=== PATIENT | female | born 1990 | race Caucasian/White ===

== ENCOUNTER 2016-04-19 17:52 | Emergency (ER) | payer OTHER ==
[2016-04-19] MEDS ORDERED: Rocephin 1000 MG INJ IM ONE (18:02)
[2016-04-19] MEDS ORDERED: XYLOCAINE 1% HCL 20 ML MDV ONE (18:07)
[2016-04-19] MEDS ORDERED: Rocephin 1000 MG INJ ONE (18:07)
--- NOTE | 2016-04-19 18:12 | ERPHSYRPT ---
- History of Present Illness Time Seen by Provider: 04/19/16 18:08 Historian: patient Exam Limitations: no limitations Patient Subjective Stated Complaint: abd pain for 1 week Triage Nursing Assessment: 18 weeks . abd pain for 1 week--worsening for past 2 days. nausea with no vomiting. back pain started today. states has had yellow clear discharge for 1 week. lt lower abd pain worse with with urination. abd soft. noraml bm this morning. skin warm. heart tones 140's Physician History: abd pain for 1 week 18 weeks . abd pain for 1 week--worsening for past 2 days. nausea with no vomiting. back pain started today. states has had yellow clear discharge for 1 week. lt lower abd pain worse with with urination. heart tones 140's Timing/Duration: week(s) (one week) Activities at Onset: none Quality: cramping Abdominal Pain Onset Location: suprapubic Pain Radiation: no radiation Severity of Pain-Max: mild Severity of Pain-Current: mild Modifying Factors: Improves With: nothing Associated Symptoms: back Allergies/Adverse Reactions: No Known Drug Allergies Allergy (Unverified 04/19/16 17:59) Home Medications: [id number]/FA/Omega3/Dha/Fish Oil [ Gummies] 1 each PO DAILY 04/19/16 [ History] Hx Tetanus, Diphtheria Vaccination/Date Given: Yes Hx Influenza Vaccination/Date Given: No Hx Pneumococcal Vaccination/Date Given: No Immunizations Up to Date: Yes - Review of Systems Constitutional: No Fever, No Chills Eyes: No Symptoms Ears, Nose, & Throat: No Symptoms Respiratory: No Cough, No Dyspnea Cardiac: No Chest Pain, No Edema, No Syncope Abdominal/Gastrointestinal: Abdominal Pain, No Nausea, No Vomiting, No Diarrhea Genitourinary Symptoms: Dysuria, Frequency Musculoskeletal: Back Pain, No Neck Pain Skin: No Rash Neurological: No Dizziness, No Focal Weakness, No Sensory Changes Psychological: No Symptoms Endocrine: No Symptoms All Other Systems: Reviewed and Negative - Past Medical History Pertinent Past Medical History: No Neurological History: No Pertinent History ENT History: No Pertinent History Cardiac History: No Pertinent History Respiratory History: No Pertinent History Endocrine Medical History: No Pertinent History Musculoskeletal History: No Pertinent History GI Medical History: No Pertinent History, Other History: No Pertinent History, Other Psycho-Social History: No Pertinent History Female Reproductive Disorders: No Pertinent History - Past Surgical History Past Surgical History: No - Social History Smoking Status: Never smoker Exposure to second hand smoke: Yes Drug Use: none Patient Lives Alone: No - Female History Hx Now: No Expected Date of Delivery: 09/21/16 - Nursing Vital Signs Nursing Vital Signs: Initial Vital Signs Temperature 98.7 F Temperature Source Oral Pulse Rate 88 Respiratory Rate 18 Blood Pressure [Right Arm] 144/81 Pain Intensity 8 - Physical Exam General Appearance: no apparent distress, alert Eye Exam: PERRL/EOMI, eyes nml inspection Ears, Nose, Throat Exam: normal ENT inspection, pharynx normal, moist mucous membranes Neck Exam: normal inspection, non-tender, supple, full range of motion Respiratory Exam: normal breath sounds, lungs clear, No respiratory distress Cardiovascular Exam: regular rate/rhythm, normal heart sounds Gastrointestinal/Abdomen Exam: soft (18-20 weeks abdomen), normal bowel sounds, other (positive heart sounds 140-150), No tenderness, No distention, No mass Back Exam: normal inspection, normal range of motion, No CVA tenderness, No vertebral tenderness Extremity Exam: normal inspection, normal range of motion, pelvis stable Neurologic Exam: alert, oriented x 3, cooperative, normal mood/affect, nml cerebellar function, sensation nml, No motor deficits Skin Exam: normal color, warm, dry Oxygen Delivery: Room Air - Course Nursing assessment & vital signs reviewed: Yes Ordered Tests: Active Orders 24 hr Category Date Time Status CBC W DIFF Stat Lab 04/19/16 18:11 Completed CMP Stat Lab 04/19/16 18:11 Received UA Stat Lab 04/19/16 18:11 Completed Medication Summary Discontinued Medications Generic Name Dose Route Start Last Admin Trade Name Giselle PRN Reason Stop Dose Admin Ceftriaxone Sodium 1,000 mg 04/19/16 18:02 04/19/16 18:08 Rocephin 1000 Mg Inj IM 04/19/16 18:03 1,000 mg STAT ONE Administration Ceftriaxone Sodium Confirm 04/19/16 18:07 Rocephin 1000 Mg Inj Administered 04/19/16 18:08 Dose 1,000 mg .ROUTE .STK-MED ONE Lidocaine HCl Confirm 04/19/16 18:07 Xylocaine 1% Hcl 20 Ml Mdv Administered 04/19/16 18:08 Dose 3 ml .ROUTE .STK-MED ONE Lab/Rad Data: Laboratory Result Diagrams 04/19/16 18:11 Laboratory Results 04/19/16 04/19/16 Range/Units 18:11 18:11 WBC 8.9 (4.0-10.5) K/mm3 RBC 4.15 (4.1-5.4) M/mm3 Hgb 13.0 (12.0-16.0) gm/dl Hct 36.7 (35-47) % MCV 88.4 (78-100) fl MCH 31.3 (26-32) pg MCHC 35.4 (32-36) g/dl RDW 13.6 (11.5-14.0) % Plt Count 256 (150-450) K/mm3 MPV 10.2 H (6-9.5) fl Gran % 70.3 H (36.0-66.0) % Lymphocytes % 17.8 L (24.0-44.0) % Monocytes % 9.2 (0.0-12.0) % Eosinophils % 2.5 (0.00-5.0) % Basophils % 0.2 (0.0-0.4) % Basophils # 0.02 (0-0.4) Ur Collection Type CLEAN CATCH Urine Color YELLOW (YELLOW) Urine Appearance SLIGHTLY CLOUDY (CLEAR) Urine pH 7.0 (5-6) Ur Specific [place] 1.020 (1.005-1.025) Urine Protein NEGATIVE (Negative) Urine Glucose (UA) NEGATIVE (NEGATIVE) mg/dL Urine Ketones NEGATIVE (NEGATIVE) Urine Nitrite NEGATIVE (NEGATIVE) Urine Bilirubin NEGATIVE (NEGATIVE) Urine Urobilinogen 4 (0-1) mg/dL Urine WBC (Auto) NEGATIVE (NEGATIVE) Urine RBC (Auto) NEGATIVE (0-5) Jamarcus/ul Specimen Received 04/19/16 1810 - Progress Progress: improved Counseled pt/family regarding: lab results, diagnosis, need for follow-up - Departure Time of Disposition: 18:29 Departure Disposition: Home Clinical Impression: Abdominal pain during in second trimester Condition: Stable Critical Care Time: No Referrals: ANTOINETTE BAUTISTA [Primary Care Provider] - Additional Instructions: ABDOMINAL PAIN 1. There are several different causes for abdominal pain, some of which may not be able to be identified on initial examination. 2. The important thing to remember is that bodily functions can change in a short period of time. If you notice any of the following symptoms, return to the emergency department or consult your doctor immediately: A. Worsening pain or no improvement in the next 12 hours. B. Increasing, severe abdominal pain C. Blood in stool, vaginal bleeding D. Black stools E. Persistent vomiting F. Fever or chills or other symptoms Prescriptions: Amoxicillin 500 mg PO TID #30 tablet
[2016-04-19 18:14] LABS: BASOPHIL % 0.2 % (0.0-0.4); Eosinophil % 2.5 % (0.00-5.0); Granulocytes % 70.3 % (36.0-66.0); Lymphocytes % 17.8 % (24.0-44.0); Mean Cell Volume 88.4 fl (78-100); Mean Corpuscular Hemoglobin 31.3 pg (26-32); Mean Platelet Volume 10.2 fl (6-9.5); Monocytes % 9.2 % (0.0-12.0); Platelet Count 256 K/mm3 (150-450); Red Blood Count 4.15 M/mm3 (4.1-5.4); Red Cell Distribution Width 13.6 % (11.5-14.0); White Blood Count 8.9 K/mm3 (4.0-10.5)
[2016-04-19 18:21] LABS: COMPLETE URINE MICROSCOPIC? NO; Collection Type CLEAN CATCH
[2016-04-19 18:32] LABS: ALBUMIN 3.1 g/dL (3.4-5.0); ALKALINE PHOSPHATASE 111 U/L (46-116); ANION GAP 14.9 MEQ/L (5-15); BLOOD UREA NITROGEN 7 mg/dL (9-20); CHLORIDE 104 mEq/L (98-107); Carbon Dioxide 23.1 mEq/L (21-32); Glucose 103 MG/DL (70-110); Potassium 3.5 mEq/L (3.5-5.1); SGOT/AST 50 U/L (15-37); SGPT/ALT 71 U/L (12-78); SODIUM 139 mEq/L (136-145); Total Protein 7.1 gm/dL (6.4-8.2)
[2016-04-19 18:46] VITALS: BP 129/70; PULSE 70; O2SAT 100
== END 2016-04-19 18:46 | disposition home or self-care (01) ==
LOC: ED 17:52
DX: O26.892 Other specified pregnancy related conditions, second trimester (principal); R10.9 Unspecified abdominal pain
CPT/HCPCS: 36415; 80053; 81002; 85025; 96372; 99283; 99284; J0696

== ENCOUNTER 2016-07-23 19:50 | Observation (INO) | payer MEDICAID ==
[2016-07-23 21:10] LABS: Collection Type CLEAN CATCH
[2016-07-23 21:11] LABS: Bacteria RARE /HPF (NEGATIVE); COMPLETE URINE MICROSCOPIC? YES; Epithelial Cells FEW /HPF (FEW)
[2016-07-23] MEDS ORDERED: Sodium Chloride 0.9% 1000 ML 1,000 ML IV STA (21:45)
[2016-07-23] MEDS ORDERED: Lactated Ringers 1,000 ML IV SCH (22:00)
[2016-07-24 00:32] LABS: CHLAMYDIA URINE NEGATIVE; GC URINE NEGATIVE
[2016-07-24 08:27] VITALS: BP 120/71; PULSE 93
== END 2016-07-24 08:15 | disposition home or self-care (01) ==
LOC: OB 19:50
PROVIDERS: ADMIT Family Medicine; ATTEND Family Medicine
DX: Z34.83 Encounter for supervision of other normal pregnancy, third trimester (principal)
CPT/HCPCS: 80307; 81000; 87491; 87591; G0378

== ENCOUNTER 2016-08-28 21:13 | Observation (INO) | payer MEDICAID ==
[2016-08-29 01:01] VITALS: BP 136/81; PULSE 95
== END 2016-08-29 02:15 | disposition home or self-care (01) ==
LOC: OB 21:13 → UNDOADMOB 21:13 → UNDODISOB 08-29 02:15
PROVIDERS: ADMIT Family Medicine; ATTEND Family Medicine
DX: Z34.83 Encounter for supervision of other normal pregnancy, third trimester (principal)
CPT/HCPCS: G0378

== ENCOUNTER 2016-09-07 20:05 | Observation (INO) | payer MEDICAID ==
[2016-09-07 20:27] VITALS: BP 138/85; PULSE 96
== END 2016-09-07 22:00 | disposition home or self-care (01) ==
LOC: OB 20:05 → UNDOADMOB 20:05 → UNDODISOB 22:00
PROVIDERS: ADMIT Family Medicine; ATTEND Family Medicine
DX: Z34.83 Encounter for supervision of other normal pregnancy, third trimester (principal)
CPT/HCPCS: 80307; G0378

== ENCOUNTER 2016-09-14 19:24 | Inpatient (IN) | payer MEDICAID ==
[2016-09-14] MEDS ORDERED: XYLOCAINE 1% HCL 20 ML MDV IJ PRN (21:16)
[2016-09-14] MEDS ORDERED: TYLENOL EXTRA STRENGTH 500 MG PO PRN (21:16)
[2016-09-14] MEDS ORDERED: BRETHINE 1 MG/ML SQ PRN (21:16)
[2016-09-14] MEDS ORDERED: OMNIPEN 2 GM / NACL 100ML 100 ML IV ONE (21:16)
[2016-09-14] MEDS ORDERED: Zofran 4 MG/2 ML VIAL IV PRN (21:16)
[2016-09-14] MEDS ORDERED: Lactated Ringers 1,000 ML IV SCH (21:30)
[2016-09-14] MEDS ORDERED: PITOCIN 30 UNITS/ LR 500 ML 500 ML IV SCH ×2 (21:30)
[2016-09-14 21:35] LABS: BASOPHIL % 0.2 % (0.0-0.4); Eosinophil % 0.5 % (0.00-5.0); Granulocytes % 77.5 % (36.0-66.0); Lymphocytes % 14.7 % (24.0-44.0); Mean Cell Volume 82.5 fl (78-100); Mean Platelet Volume 11.5 fl (6-9.5); Monocytes % 7.1 % (0.0-12.0); Platelet Count 292 K/mm3 (150-450); Red Blood Count 4.29 M/mm3 (4.1-5.4); Red Cell Distribution Width 14.8 % (11.5-14.0); White Blood Count 8.1 K/mm3 (4.0-10.5)
[2016-09-14 21:36] LABS: Mean Corpuscular Hemoglobin 26.5 pg (26-32)
[2016-09-14] MEDS ORDERED: Cervidil 10 MG VAG SCH (22:00)
[2016-09-15] MEDS ORDERED: OMNIPEN 1GM / NaCl 100ML 100 ML IV SCH ×2 (01:18→10:00)
[2016-09-15] MEDS ORDERED: Trandate 100 MG ONE (05:56)
[2016-09-15] MEDS ORDERED: Lactated Ringers 1,000 ML IV SCH (06:00)
[2016-09-15] MEDS ORDERED: PITOCIN 30 UNITS/ LR 500 ML 500 ML IV SCH ×2 (06:00)
[2016-09-15] MEDS: OMNIPEN 2 GM / NACL 100ML 100 ML IV ONE ×2 (06:01→06:02)
[2016-09-15] MEDS ORDERED: Trandate 100 MG PO ONE (06:03)
[2016-09-15 06:54] LABS: ALBUMIN 2.8 g/dL (3.4-5.0); ALKALINE PHOSPHATASE 175 U/L (46-116); ANION GAP 19.5 MEQ/L (5-15); BLOOD UREA NITROGEN 8 mg/dL (9-20); CHLORIDE 101 mEq/L (98-107); Carbon Dioxide 19.4 mEq/L (21-32); Glucose 99 MG/DL (70-110); Potassium 3.6 mEq/L (3.5-5.1); SGOT/AST 49 U/L (15-37); SGPT/ALT 54 U/L (12-78); SODIUM 136 mEq/L (136-145); Total Protein 7.3 gm/dL (6.4-8.2)
[2016-09-15 07:18] LABS: BASOPHIL % 0.2 % (0.0-0.4); Eosinophil % 0.4 % (0.00-5.0); Granulocytes % 76.5 % (36.0-66.0); Lymphocytes % 15.2 % (24.0-44.0); Mean Cell Volume 83.1 fl (78-100); Mean Platelet Volume 11.1 fl (6-9.5); Monocytes % 7.7 % (0.0-12.0); Platelet Count 310 K/mm3 (150-450); Red Blood Count 4.32 M/mm3 (4.1-5.4); Red Cell Distribution Width 14.9 % (11.5-14.0); White Blood Count 11.2 K/mm3 (4.0-10.5)
[2016-09-15 07:21] LABS: Mean Corpuscular Hemoglobin 26.1 pg (26-32)
[2016-09-15] MEDS ORDERED: MOTRIN 400 MG PO PRN (08:19)
[2016-09-15] MEDS ORDERED: Dermoplast Spray TP PRN (08:19)
[2016-09-15] MEDS ORDERED: CORTISONE 1% CREAM TP PRN (08:19)
[2016-09-15] MEDS ORDERED: Anucort-HC SUPPOSITORY PR PRN (08:19)
[2016-09-15] MEDS ORDERED: TYLENOL EXTRA STRENGTH 500 MG PO PRN (08:19)
[2016-09-15] MEDS ORDERED: Mylicon 80MG PO PRN (08:19)
[2016-09-15] MEDS ORDERED: Dulcolax 10 MG SUPP PR PRN (08:19)
[2016-09-15] MEDS ORDERED: NORCO 5/325 MG PO PRN (08:19)
[2016-09-15] MEDS ORDERED: Adacel Vial IM ONE (08:19)
[2016-09-15] MEDS ORDERED: LANSINOH 40 GM TOP PRN (08:19)
[2016-09-15 08:33] LABS: Bilirubin NEGATIVE (NEGATIVE); Blood 250 Ery/ul (0-5); COMPLETE URINE MICROSCOPIC? YES; Collection Type CATH; Glucose TRACE mg/dL (NEGATIVE); Leukocyte Esterase NEGATIVE (NEGATIVE)
[2016-09-15 08:34] LABS: Bacteria FEW /HPF (NEGATIVE); Epithelial Cells FEW /HPF (FEW); WBC 0-2 /HPF (0-5)
[2016-09-15] MEDS ORDERED: Trandate 100 MG PO SCH (10:00)
[2016-09-15] MEDS: FERREX 150 PO SCH (13:19)
[2016-09-15] MEDS: Colace 100 MG PO SCH ×2 (13:19→21:28)
[2016-09-16 08:07] LABS: BASOPHIL % 0.2 % (0.0-0.4); Eosinophil % 0.8 % (0.00-5.0); Lymphocytes % 13.7 % (24.0-44.0); Mean Cell Volume 84.1 fl (78-100); Mean Platelet Volume 11.5 fl (6-9.5); Monocytes % 7.3 % (0.0-12.0); Platelet Count 266 K/mm3 (150-450); Red Blood Count 3.77 M/mm3 (4.1-5.4); Red Cell Distribution Width 14.9 % (11.5-14.0); White Blood Count 11.1 K/mm3 (4.0-10.5)
[2016-09-16 08:08] LABS: ALBUMIN 2.4 g/dL (3.4-5.0); ALKALINE PHOSPHATASE 148 U/L (46-116); ANION GAP 13.9 MEQ/L (5-15); BLOOD UREA NITROGEN 7 mg/dL (9-20); CHLORIDE 105 mEq/L (98-107); Carbon Dioxide 22.9 mEq/L (21-32); Glucose 94 MG/DL (70-110); Potassium 4.2 mEq/L (3.5-5.1); SGOT/AST 42 U/L (15-37); SGPT/ALT 39 U/L (12-78); SODIUM 138 mEq/L (136-145); Total Protein 6.4 gm/dL (6.4-8.2)
[2016-09-16 09:01] LABS: Mean Corpuscular Hemoglobin 26.2 pg (26-32)
[2016-09-16] MEDS: FERREX 150 PO SCH (09:43)
[2016-09-16] MEDS: Colace 100 MG PO SCH ×2 (09:43→21:46)
[2016-09-17 08:26] VITALS: BP 141/97; PULSE 98
== END 2016-09-17 09:07 | disposition home or self-care (01) | DRG 775 ==
LOC: UNDOADMOB 20:19 → OB 20:19 → OBSVTOIN 09-15 05:05 → INTOOBSV 09-15 05:05 → UNDODISIN 09-17 09:07
PROVIDERS: ADMIT Family Medicine; ATTEND Family Medicine
PROC: 10E0XZZ Delivery of Products of Conception, External Approach (ICD-10-PCS; principal; 2016-09-15)
PROC: 0KQM0ZZ Repair Perineum Muscle, Open Approach (ICD-10-PCS; 2016-09-15)
DX: O70.1 Second degree perineal laceration during delivery (principal); Z37.0 Single live birth; Z3A.39 39 weeks gestation of pregnancy
CPT/HCPCS: 36415; 80053; 80307; 81000; 84550; 85025; 90715; 96372; G0378; J0290; J2405; J2590; A9270-GY

== ENCOUNTER 2020-09-01 18:49 | Emergency (ER) | payer OTHER ==
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
[2020-09-01 19:54] VITALS: BP 147/96; PULSE 80; O2SAT 100
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
== END 2020-09-01 19:54 | disposition home or self-care (01) ==
LOC: ED 18:49
DX: M25.511 Pain in right shoulder (principal); I10 Essential (primary) hypertension; M54.2 Cervicalgia
CPT/HCPCS: 72125; 73030; 99283

== ENCOUNTER 2020-12-04 13:51 | Day surgery (SDC) | payer OTHER ==
[2020-12-04] MEDS ORDERED: BUPIVACAINE 0.5% VIAL IJ ONE (13:52)
[2020-12-04] MEDS ORDERED: Depo-Medrol 40 MG/ML IM ONE (13:52)
[2020-12-04] MEDS ORDERED: DIPRIVAN 200 MG/20 ML IV ONE (15:37)
[2020-12-04] MEDS ORDERED: Lactated Ringers 1,000 ML IV ONE (17:29)
--- NOTE | 2020-12-04 18:26 | XRAY ---
Indication: Right shoulder injection. Intraoperative fluoroscopy provided for 13 seconds. Single digital spot image submitted for interpretation demonstrates needle tip projecting over the right glenohumeral joint superiorly. Small amount of contrast injected for needle tip placement. Correlate with intraoperative findings/report.
--- NOTE | 2020-12-04 19:01 | XRAY ---
13 seconds of fluoroscopy was used in surgery for a right shoulder intra-articular injection.
== END 2020-12-04 16:00 | disposition home or self-care (01) ==
LOC: SDC-PAIN 13:51
PROVIDERS: ATTEND Psychiatry & Neurology Pain Medicine
DX: M19.011 Primary osteoarthritis, right shoulder (principal); Z79.899 Other long term (current) drug therapy
CPT/HCPCS: 20610; 73030; 77002; 84703; J1030; J2704; Q9966

== ENCOUNTER 2021-07-02 11:31 | Day surgery (SDC) | payer OTHER ==
[2021-07-02] MEDS ORDERED: BUPIVACAINE 0.5% VIAL IJ ONE (11:32)
[2021-07-02] MEDS ORDERED: Depo-Medrol 40 MG/ML IM ONE (11:32)
[2021-07-02] MEDS ORDERED: Versed 2 MG/2 ML Injection ONE (12:38)
[2021-07-02] MEDS ORDERED: DIPRIVAN 200 MG/20 ML IV ONE (13:31)
[2021-07-02] MEDS ORDERED: Lactated Ringers 1,000 ML IV ONE (13:55)
--- NOTE | 2021-07-02 14:32 | XRAY ---
Indication: Right shoulder injection. Intraoperative fluoroscopy provided for 18 seconds. Single digital spot image submitted for interpretation demonstrates needle tip projecting over the right glenohumeral joint superiorly. Small amount of contrast injected for needle tip placement. Correlate with intraoperative findings/report.
--- NOTE | 2021-07-02 16:28 | XRAY ---
18 seconds fluoroscopy time in surgery for intra-articular injection of the right shoulder.
== END 2021-07-02 14:16 | disposition home or self-care (01) ==
LOC: SDC-PAIN 11:31
PROVIDERS: ATTEND Psychiatry & Neurology Pain Medicine
DX: M19.011 Primary osteoarthritis, right shoulder (principal); Z79.899 Other long term (current) drug therapy
CPT/HCPCS: 20610; 73030; 77002; 84703; J1030; J2250; J2704; Q9966

== ENCOUNTER 2021-07-15 12:48 | Emergency (ER) | payer OTHER ==
[2021-07-15] MEDS ORDERED: Sodium Chloride 0.9% 1000 ML 1,000 ML IV STA ×2 (13:03→14:39)
[2021-07-15] MEDS ORDERED: Compazine 10 MG/2 ML IV ONE (13:04)
[2021-07-15 13:05] VITALS: O2SAT 98
[2021-07-15] MEDS ORDERED: TORAdol 30 mg Injection IM ONE (13:05)
--- NOTE | 2021-07-15 13:06 | ERPHSYRPT ---
- History of Present Illness Time Seen by Provider: 07/15/21 12:58 Source: patient Exam Limitations: no limitations Patient Subjective Stated Complaint: headache and body aches and can't get warm Triage Nursing Assessment: Pt was brought to the ER by a relative, tachycardic, hypertensive, rates pain as 11/15, N&V, body aches, pulses normal, skin n/w/d, denies diarrhea, last intake this AM at 0830 Physician History: Patient is a 31-year-old female presents to emergency department for evaluation of headache and myalgias. Symptoms started yesterday. Patient arrived to our ED complaining of cold chills. Patient has had multiple bouts of nausea and vomiting prior to arrival. Patient arrived tachycardic. No chest pain or shortness of breath. Symptoms are mild to moderate in intensity. Patient took ibuprofen at 430 this morning which slightly helped. However patient symptoms continued. Patient patient is otherwise healthy. She voices no other complaints or concerns at this time. Timing/Duration: yesterday Severity: moderate Modifying Factors: Improves With: nothing Associated Symptoms: nausea, vomiting, chills, No shortness of breath, No fever, No syncope, No seizure Allergies/Adverse Reactions: No Known Drug Allergies Allergy (Verified 07/15/21 13:05) Hx Tetanus, Diphtheria Vaccination/Date Given: Yes Hx Influenza Vaccination/Date Given: No Hx Pneumococcal Vaccination/Date Given: No Travel Risk - International Travel Have you traveled outside of the country in past 3 weeks: No - Coronavirus Screening Are you exhibiting any of the following symptoms?: Yes Symptoms: Headaches/Body Aches/Fatigue Close contact with a COVID-19 positive Pt in past 14-21 Days: No - Vaccine Status Have you recieved a Covid-19 vaccination: No - Review of Systems Constitutional: No Symptoms, No Fever, No Chills Eyes: No Symptoms Ears, Nose, & Throat: No Symptoms Respiratory: No Symptoms, No Cough, No Dyspnea Cardiac: No Symptoms, No Chest Pain, No Edema, No Syncope Abdominal/Gastrointestinal: No Symptoms, No Abdominal Pain, No Nausea, No Vomiting, No Diarrhea Genitourinary Symptoms: No Symptoms, No Dysuria Musculoskeletal: No Symptoms, No Back Pain, No Neck Pain Skin: No Symptoms, No Rash Neurological: No Symptoms, No Dizziness, No Focal Weakness, No Sensory Changes Psychological: No Symptoms Endocrine: No Symptoms Hematologic/Lymphatic: No Symptoms Immunological/Allergic: No Symptoms All Other Systems: Reviewed and Negative - Past Medical History Pertinent Past Medical History: Yes Neurological History: No Pertinent History ENT History: No Pertinent History Cardiac History: Hypertension Respiratory History: No Pertinent History Endocrine Medical History: No Pertinent History Musculoskeletal History: No Pertinent History GI Medical History: No Pertinent History, Other History: No Pertinent History, Other Psycho-Social History: No Pertinent History Female Reproductive Disorders: No Pertinent History Other Medical History: Gastritis 2011, anemia - Past Surgical History Past Surgical History: No - Social History Smoking Status: Never smoker Exposure to second hand smoke: No Drug Use: none Patient Lives Alone: No - Female History Hx Last Menstrual Period: 07/07/2021 Hx Now: No - Nursing Vital Signs Nursing Vital Signs: Initial Vital Signs Temperature 97.3 F 07/15/21 12:53 Pulse Rate 131 H 07/15/21 12:53 Blood Pressure 138/101 07/15/21 12:53 O2 Sat by Pulse Oximetry 98 07/15/21 12:53 Pain Scale Pain Intensity 4 - Physical Exam General Appearance: no apparent distress, alert Eye Exam: PERRL/EOMI, eyes nml inspection Ears, Nose, Throat Exam: normal ENT inspection, TMs normal, pharynx normal, moist mucous membranes Neck Exam: normal inspection, non-tender, supple, full range of motion Respiratory Exam: normal breath sounds, lungs clear, airway intact, No respiratory distress Cardiovascular Exam: normal heart sounds, normal peripheral pulses, other (Sinus tachycardia) Gastrointestinal/Abdomen Exam: soft, normal bowel sounds, No tenderness, No mass Back Exam: normal inspection, normal range of motion, No CVA tenderness, No vertebral tenderness Extremity Exam: normal inspection, normal range of motion, pelvis stable Neurologic Exam: alert, oriented x 3, cooperative, normal mood/affect, nml cerebellar function, nml station & gait, sensation nml, No motor deficits Skin Exam: normal color, warm, dry, No rash Lymphatic Exam: No adenopathy SpO2 Interpretation: normal SpO2: 98 O2 Delivery: Room Air - Course Nursing assessment & vital signs reviewed: Yes EKG Interpreted by Me: RATE ([id number]), Sinus Tach, NORMAL AXIS, NORMAL INTERVALS Ordered Tests: Active Orders 24 hr Category Date Time Status Environmental Technology Professor STAT Care 07/15/21 13:04 Active EKG-ER Only STAT Care 07/15/21 13:03 Active IV Insertion STAT Care 07/15/21 13:03 Active CBC W DIFF Stat Lab 07/15/21 13:15 Completed CMP Stat Lab 07/15/21 13:15 Completed CULTURE,URINE Stat Lab 07/15/21 13:51 Received D-DIMER QUANTITATIVE Stat Lab 07/15/21 15:37 Completed HCG,QUALITATIVE URINE Stat Lab 07/15/21 13:51 Completed TROPONIN Q3H Lab 07/15/21 13:15 Completed TROPONIN Q3H Lab 07/15/21 16:15 Ordered TROPONIN Q3H Lab 07/15/21 19:15 Ordered TROPONIN Q3H Lab 07/15/21 22:15 Ordered TROPONIN Q3H Lab 07/16/21 01:15 Ordered TSH [TSH, 3RD Generation] Stat Lab 07/15/21 14:38 Completed UA W/RFX CULTURE Stat Lab 07/15/21 13:51 Completed Medication Summary Discontinued Medications Generic Name Dose Route Start Last Admin Trade Name Freq PRN Reason Stop Dose Admin Dexamethasone Sodium Phosphate 8 mg 07/15/21 14:03 07/15/21 14:24 Dexamethasone Sod Phosphate 10 Mg/Ml IV 07/15/21 14:04 8 mg STAT ONE Administration Dexamethasone Sodium Phosphate Confirm 07/15/21 14:24 Dexamethasone Sod Phosphate 10 Mg/Ml Administered 07/15/21 14:25 Dose 10 mg .ROUTE .STK-MED ONE Sodium Chloride 1,000 mls @ 999 mls/hr 07/15/21 13:03 07/15/21 14:24 Sodium Chloride 0.9% 1000 Ml IV 07/15/21 14:03 Infused .Q1H1M STA Infusion Sodium Chloride Confirm 07/15/21 13:17 Sodium Chloride 0.9% 1000 Ml Administered 07/15/21 13:18 Dose 1,000 mls @ ud .ROUTE .STK-MED ONE Sodium Chloride 1,000 mls @ 999 mls/hr 07/15/21 14:39 07/15/21 15:54 Sodium Chloride 0.9% 1000 Ml IV 07/15/21 15:39 Infused .Q1H1M STA Infusion Sodium Chloride Confirm 07/15/21 14:41 Sodium Chloride 0.9% 1000 Ml Administered 07/15/21 14:42 Dose 1,000 mls @ ud .ROUTE .STK-MED ONE Ketorolac Tromethamine 30 mg 07/15/21 13:05 07/15/21 13:31 Ketorolac Tromethamine 30 Mg/Ml Inj IM 07/15/21 13:06 Not Given STAT ONE Ketorolac Tromethamine 30 mg 07/15/21 13:30 07/15/21 13:36 Ketorolac Tromethamine 30 Mg/Ml Inj IV 07/15/21 13:31 30 mg STAT ONE Administration Ketorolac Tromethamine Confirm 07/15/21 13:36 Ketorolac Tromethamine 30 Mg/Ml Inj Administered 07/15/21 13:37 Dose 30 mg .ROUTE .STK-MED ONE Nitrofurantoin Macrocrystals 100 mg 07/15/21 14:35 07/15/21 14:37 Nitrofurantoin Macro 100 Mg Capsule PO 07/15/21 14:36 100 mg STAT ONE Administration Nitrofurantoin Macrocrystals Confirm 07/15/21 14:37 Nitrofurantoin Macro 100 Mg Capsule Administered 07/15/21 14:38 Dose 100 mg .ROUTE .STK-MED ONE Prochlorperazine Edisylate 10 mg 07/15/21 13:04 07/15/21 13:37 Prochlorperazine Edisylate 10 Mg/2 Ml Vial IV 07/15/21 13:05 10 mg STAT ONE Administration Prochlorperazine Edisylate Confirm 07/15/21 13:36 Prochlorperazine Edisylate 10 Mg/2 Ml Vial Administered 07/15/21 13:37 Dose 10 mg .ROUTE .STK-MED ONE Lab/Rad Data: Laboratory Result Diagrams 07/15/21 13:15 07/15/21 13:15 Laboratory Results 07/15/21 07/15/21 07/15/21 Range/Units 15:37 14:38 13:51 WBC (4.0-10.5) K/mm3 RBC (4.1-5.4) M/mm3 Hgb (12.0-16.0) gm/dl Hct (35-47) % MCV (78-100) fl MCH (26-32) pg MCHC (32-36) g/dl RDW (11.5-14.0) % Plt Count (150-450) K/mm3 MPV (7.5-11.0) fl Gran % (36.0-66.0) % Eos # (Auto) (0-0.5) Absolute Lymphs (auto) (1.0-4.6) Absolute Monos (auto) (0.0-1.3) Lymphocytes % (24.0-44.0) % Monocytes % (0.0-12.0) % Eosinophils % (0.00-5.0) % Basophils % (0.0-0.4) % Absolute Granulocytes (1.4-6.9) Basophils # (0-0.4) D-Dimer 473 (215-500) ng/mL Sodium (137-145) mmol/L Potassium (3.5-5.1) mmol/L Chloride (98-107) mmol/L Carbon Dioxide (22-30) mmol/L Anion Gap (5-15) MEQ/L BUN (7-17) mg/dL Creatinine (0.52-1.04) mg/dL Estimated GFR ML/MIN Glucose (74-106) mg/dL Calcium (8.4-10.2) mg/dL Total Bilirubin (0.2-1.3) mg/dL AST (14-36) U/L ALT (0-35) U/L Alkaline Phosphatase (38-126) U/L Troponin I (0.000-0.034) ng/mL Serum Total Protein (6.3-8.2) g/dL Albumin (3.5-5.0) g/dL TSH 3rd Generation 1.060 (0.47-4.68) mIU/L Urinalys Dipstick Clnc MAIN LAB Urine Color YELLOW (YELLOW) Urine Appearance CLEAR (CLEAR) Urine pH 8.0 (5-6) Ur Specific [place] 1.020 (1.005-1.025) POC Urine Protein Conf NEGATIVE (Negative) Urine Ketones NEGATIVE (NEGATIVE) Urine Nitrite NEGATIVE (NEGATIVE) Urine Bilirubin NEGATIVE (NEGATIVE) Urine Urobilinogen 0.2 (0-1) mg/dL Urine Leukocytes SMALL (NEGATIVE) Urine WBC (Auto) 6-10 (0-5) /HPF Urine RBC (Auto) NONE (0-2) /HPF U Epithel Cells (Auto) RARE (FEW) /HPF Urine Bacteria (Auto) RARE (NEGATIVE) /HPF Urine RBC NEGATIVE (0-5) Jamarcus/ul Ur Culture Indicated? YES Urine Glucose NEGATIVE (NEGATIVE) mg/dL Urine HCG, Qual (Negative) Influenza Type A Ag (NEGATIVE) Influenza Type B Ag (NEGATIVE) RSV (PCR) (Negative) SARS-CoV-2 (PCR) (NEGATIVE) Slides for Path Review 07/15/21 07/15/21 07/15/21 Range/Units 13:51 13:15 13:15 WBC (4.0-10.5) K/mm3 RBC (4.1-5.4) M/mm3 Hgb (12.0-16.0) gm/dl Hct (35-47) % MCV (78-100) fl MCH (26-32) pg MCHC (32-36) g/dl RDW (11.5-14.0) % Plt Count (150-450) K/mm3 MPV (7.5-11.0) fl Gran % (36.0-66.0) % Eos # (Auto) (0-0.5) Absolute Lymphs (auto) (1.0-4.6) Absolute Monos (auto) (0.0-1.3) Lymphocytes % (24.0-44.0) % Monocytes % (0.0-12.0) % Eosinophils % (0.00-5.0) % Basophils % (0.0-0.4) % Absolute Granulocytes (1.4-6.9) Basophils # (0-0.4) D-Dimer (215-500) ng/mL Sodium (137-145) mmol/L Potassium (3.5-5.1) mmol/L Chloride (98-107) mmol/L Carbon Dioxide (22-30) mmol/L Anion Gap (5-15) MEQ/L BUN (7-17) mg/dL Creatinine (0.52-1.04) mg/dL Estimated GFR ML/MIN Glucose (74-106) mg/dL Calcium (8.4-10.2) mg/dL Total Bilirubin (0.2-1.3) mg/dL AST (14-36) U/L ALT (0-35) U/L Alkaline Phosphatase (38-126) U/L Troponin I < 0.012 (0.000-0.034) ng/mL Serum Total Protein (6.3-8.2) g/dL Albumin (3.5-5.0) g/dL TSH 3rd Generation (0.47-4.68) mIU/L Urinalys Dipstick Clnc Urine Color (YELLOW) Urine Appearance (CLEAR) Urine pH (5-6) Ur Specific [place] (1.005-1.025) POC Urine Protein Conf (Negative) Urine Ketones (NEGATIVE) Urine Nitrite (NEGATIVE) Urine Bilirubin (NEGATIVE) Urine Urobilinogen (0-1) mg/dL Urine Leukocytes (NEGATIVE) Urine WBC (Auto) (0-5) /HPF Urine RBC (Auto) (0-2) /HPF U Epithel Cells (Auto) (FEW) /HPF Urine Bacteria (Auto) (NEGATIVE) /HPF Urine RBC (0-5) Jamarcus/ul Ur Culture Indicated? Urine Glucose (NEGATIVE) mg/dL Urine HCG, Qual NEGATIVE (Negative) Influenza Type A Ag NEGATIVE (NEGATIVE) Influenza Type B Ag NEGATIVE (NEGATIVE) RSV (PCR) NEGATIVE (Negative) SARS-CoV-2 (PCR) POSITIVE A (NEGATIVE) Slides for Path Review 07/15/21 07/15/21 Range/Units 13:15 13:15 WBC 5.7 (4.0-10.5) K/mm3 RBC 4.78 (4.1-5.4) M/mm3 Hgb 10.8 L (12.0-16.0) gm/dl Hct 34.7 L (35-47) % MCV 72.6 L (78-100) fl MCH 22.6 L (26-32) pg MCHC 31.1 L (32-36) g/dl RDW 17.9 H (11.5-14.0) % Plt Count 299 (150-450) K/mm3 MPV 10.2 (7.5-11.0) fl Gran % 84.9 H (36.0-66.0) % Eos # (Auto) 0.02 (0-0.5) Absolute Lymphs (auto) 0.18 L (1.0-4.6) Absolute Monos (auto) 0.62 (0.0-1.3) Lymphocytes % 3.2 L (24.0-44.0) % Monocytes % 11.0 (0.0-12.0) % Eosinophils % 0.4 (0.00-5.0) % Basophils % 0.5 (0.0-0.4) % Absolute Granulocytes 4.80 (1.4-6.9) Basophils # 0.03 (0-0.4) D-Dimer (215-500) ng/mL Sodium 135 L (137-145) mmol/L Potassium 3.6 (3.5-5.1) mmol/L Chloride 103 (98-107) mmol/L Carbon Dioxide 21 L (22-30) mmol/L Anion Gap 14.4 (5-15) MEQ/L BUN 9 (7-17) mg/dL Creatinine 0.70 (0.52-1.04) mg/dL Estimated GFR > 60.0 ML/MIN Glucose 122 H (74-106) mg/dL Calcium 8.5 (8.4-10.2) mg/dL Total Bilirubin 1.40 H (0.2-1.3) mg/dL AST 130 H (14-36) U/L ALT 94 H (0-35) U/L Alkaline Phosphatase 92 (38-126) U/L Troponin I (0.000-0.034) ng/mL Serum Total Protein 7.9 (6.3-8.2) g/dL Albumin 4.5 (3.5-5.0) g/dL TSH 3rd Generation (0.47-4.68) mIU/L Urinalys Dipstick Clnc Urine Color (YELLOW) Urine Appearance (CLEAR) Urine pH (5-6) Ur Specific [place] (1.005-1.025) POC Urine Protein Conf (Negative) Urine Ketones (NEGATIVE) Urine Nitrite (NEGATIVE) Urine Bilirubin (NEGATIVE) Urine Urobilinogen (0-1) mg/dL Urine Leukocytes (NEGATIVE) Urine WBC (Auto) (0-5) /HPF Urine RBC (Auto) (0-2) /HPF U Epithel Cells (Auto) (FEW) /HPF Urine Bacteria (Auto) (NEGATIVE) /HPF Urine RBC (0-5) Jamarcus/ul Ur Culture Indicated? Urine Glucose (NEGATIVE) mg/dL Urine HCG, Qual (Negative) Influenza Type A Ag (NEGATIVE) Influenza Type B Ag (NEGATIVE) RSV (PCR) (Negative) SARS-CoV-2 (PCR) (NEGATIVE) Slides for Path Review YES - Progress Progress: improved Progress Note: 07/15/21 patient reassessed. She feels well. Myalgias and headache resolved. Patient is COVID-positive. Patient also diagnosed with a urinary tract infection. Patient received a dose of Macrobid in our ED. A prescription for the same was for the patient's pharmacy. Patient remains tachycardic. Liver enzymes marginally elevated as well as total bili. We advised admission for further work-up of tachycardia in the 120s to 130s. D-dimer negative. Troponin negative as well. Patient declined. Patient states she has obligations at home and children. Patient states she will leave AMA. AMA form completed. Patient is of sound mind. Patient is appropriate to make informed and independent medical decisions. Patient understands that leaving AGAINST MEDICAL ADVICE can result in delayed diagnosis, increased risk of morbidity, mortality, short and long-term disability including . In spite of these risks, patient has decided to leave AGAINST MEDICAL ADVICE. Patient understands that she may return to our ED at any point if he or she reconsiders. Patient agrees to follow-up with her primary care doctor within 48 hours for reevaluation. Patient voices no other complaints or concerns at this time. We will release patient AGAINST MEDICAL ADVICE per their request. Portions of this note were created with voice recognition technology. There may be grammatical, spelling, punctuation or sound alike errors 16:42 Counseled pt/family regarding: lab results, diagnosis, need for follow-up, rad results - Departure Departure Disposition: Home Clinical Impression: COVID-19, Viral syndrome, UTI (urinary tract infection), Microcytic anemia, Total bilirubin, elevated, Elevated liver enzymes, Sinus tachycardia Condition: Stable Critical Care Time: No Referrals: ANTOINETTE BAUTISTA [Primary Care Provider] - Follow up/PCP as directed Additional Instructions: Discharge/Care Plan BRYANKAETOLE was seen on 07/15/21 in the Emergency Room. The patient was counseled regarding Diagnosis,Lab results, Imaging studies, need for follow up and when to return to the Emergency Room. Prescriptions given: Discharge Note I have spoken with the patient and/or caregivers. I have explained the patient's condition, diagnosis and treatment plan based on the information available to me at this time. I have answered the patient's and/or caregiver's questions and addressed any concerns. The patient and/or caregivers have as good understanding of the patient's diagnosis, condition and treatment plan as can be expected at this point. The vital signs have been stable. The patient's condition is stable and appropriate for discharge from the emergency department. The patient will pursue further outpatient evaluation with the primary care physician or other designated or consulting physician as outlined in the discharge instructions. The patient and/or caregivers are agreeable to this plan of care and follow-up instructions have been explained in detail. The patient and/or caregivers have received these instruction. The patient/and or caregivers are aware that any significant change in condition or worsening of symptoms should prompt an immediate return to this or the closest emergency department or call 911. Prescriptions: Nitrofurantoin Macro 100 mg [Macrobid 100MG Capsule] 100 mg PO BID 7 Days #14 cap
[2021-07-15 13:17] LABS: Basophil (Absolute #) 0.03 (0-0.4); Eosinophil % 0.4 % (0.00-5.0); Eosinophil (Absolute #) 0.02 (0-0.5); Hematocrit 34.7 % (35-47); Hemoglobin 10.8 gm/dl (12.0-16.0); Lymphocyte (Absolute #) 0.18 (1.0-4.6); Lymphocytes % 3.2 % (24.0-44.0); Mean Cell Volume 72.6 fl (78-100); Mean Corpuscular Hemoglobin 22.6 pg (26-32); Mean Corpuscular Hgb Concent. 31.1 g/dl (32-36); Mean Platelet Volume 10.2 fl (7.5-11.0); Monocyte (Absolute #) 0.62 (0.0-1.3); Neutrophil % 84.9 % (36.0-66.0); Platelet Count 299 K/mm3 (150-450); Red Blood Count 4.78 M/mm3 (4.1-5.4); Red Cell Distribution Width 17.9 % (11.5-14.0); White Blood Count 5.7 K/mm3 (4.0-10.5)
[2021-07-15] MEDS ORDERED: Sodium Chloride 0.9% 1000 ML 1,000 ML ONE ×2 (13:17→14:41)
[2021-07-15] MEDS ORDERED: TORAdol 30 mg Injection IV ONE (13:30)
[2021-07-15 13:31] LABS: ALBUMIN 4.5 g/dL (3.5-5.0); ALKALINE PHOSPHATASE 92 U/L (38-126); ANION GAP 14.4 MEQ/L (5-15); BLOOD UREA NITROGEN 9 mg/dL (7-17); CHLORIDE 103 mmol/L (98-107); Calcium 8.5 mg/dL (8.4-10.2); Carbon Dioxide 21 mmol/L (22-30); EST GLOMERULAR FILTRATION RATE > 60.0 ML/MIN; Glucose 122 mg/dL (74-106); Potassium 3.6 mmol/L (3.5-5.1); SGOT/AST 130 U/L (14-36); SGPT/ALT 94 U/L (0-35); SODIUM 135 mmol/L (137-145); Total Protein 7.9 g/dL (6.3-8.2)
[2021-07-15] MEDS ORDERED: Compazine 10 MG/2 ML ONE (13:36)
[2021-07-15] MEDS ORDERED: TORAdol 30 mg Injection ONE (13:36)
[2021-07-15 13:51] LABS: INFLUENZA A NEGATIVE (NEGATIVE); INFLUENZA B NEGATIVE (NEGATIVE); RESPIRATORY SYNCTIAL VIRUS NEGATIVE (Negative)
[2021-07-15 13:57] LABS: SARS-CoV-2 Xpert Express POSITIVE (NEGATIVE)
[2021-07-15] MEDS ORDERED: DECADRON 10MG INJ. IV ONE (14:03)
[2021-07-15 14:13] LABS: Bacteria RARE /HPF (NEGATIVE); Epithelial Cells RARE /HPF (FEW)
[2021-07-15 14:16] LABS: Appearance CLEAR (CLEAR); Bilirubin NEGATIVE (NEGATIVE); Glucose NEGATIVE (NEGATIVE); Ketones NEGATIVE (NEGATIVE); Nitrite NEGATIVE (NEGATIVE); Protein,Urine Dip NEGATIVE (Negative); RBC NEGATIVE Ery/ul (0-5); Urine Cultured Indicated? YES; Urobilinogen 0.2 mg/dL (0-1)
[2021-07-15 14:18] LABS: Dipstick done @ ? MAIN LAB
[2021-07-15] MEDS ORDERED: DECADRON 10MG INJ. ONE (14:24)
[2021-07-15] MEDS ORDERED: Macrobid 100MG Capsule PO ONE (14:35)
[2021-07-15] MEDS ORDERED: Macrobid 100MG Capsule ONE (14:37)
[2021-07-15 15:12] LABS: Slide Review 1 YES
[2021-07-15 16:06] VITALS: BP 153/111; PULSE 132
== END 2021-07-15 16:45 | disposition left against medical advice (07) ==
LOC: ED 12:48
DX: U07.1 COVID-19 (principal); B34.9 Viral infection, unspecified; N39.0 Urinary tract infection, site not specified; D50.9 Iron deficiency anemia, unspecified; R17 Unspecified jaundice; R74.8 Abnormal levels of other serum enzymes; R00.0 Tachycardia, unspecified; R51.9 Headache, unspecified; M79.10 Myalgia, unspecified site; R11.2 Nausea with vomiting, unspecified; I10 Essential (primary) hypertension
CPT/HCPCS: 0241U; 36000; 36415; 80053; 81015; 84443; 84484; 84703; 85025; 85379; 87086; 93005; 93041; 96360; 96361; 96374; 96375; 99285; J1100; J1885; A9270-GY

== ENCOUNTER 2023-01-04 17:45 | Emergency (ER) | payer OTHER ==
--- NOTE | 2023-01-04 17:50 | ERPHSYRPT ---
- History of Present Illness Time Seen by Provider: 01/04/23 17:50 Source: patient Exam Limitations: no limitations Physician History: This is a 32-year-old white female patient of Dr. Cooper who for almost 6 months has had intermittent left nipple discharge of the yellowish-green somewhat clear fluid. In July 2022 she had a work-up that included a left breast ultrasound. That study showed bilobed [id number] breast cysts at the 1 o'clock position. 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 Patient has never had a mammogram. Patient was placed on oral antibiotics and was told to go to the hospital if the color changed. The color change to serosanguineous today. Patient was in the shower today and noticed discharge. She has not had a fever. There is strong family history of breast cancer. Patient has not had any hormonal studies obtained. Timing/Duration: today Quality: painful Severity: mild Possible Causes: no cause identified Associated Symptoms: denies symptoms Allergies/Adverse Reactions: No Known Drug Allergies Allergy (Verified 07/15/21 13:05) Hx Tetanus, Diphtheria Vaccination/Date Given: Yes Hx Influenza Vaccination/Date Given: No Hx Pneumococcal Vaccination/Date Given: No Travel Risk - International Travel Have you traveled outside of the country in past 3 weeks: No - Coronavirus Screening Are you exhibiting any of the following symptoms?: No Close contact with a COVID-19 positive Pt in past 14-21 Days: No - Vaccine Status Have you recieved a Covid-19 vaccination: No - Review of Systems Constitutional: No Symptoms Eyes: No Symptoms Ears, Nose, & Throat: No Symptoms Respiratory: No Symptoms Cardiac: No Symptoms Abdominal/Gastrointestinal: No Symptoms Genitourinary Symptoms: No Symptoms Musculoskeletal: No Symptoms Skin: Other (Left nipple dischargeserosanguineous type fluid) Neurological: No Symptoms Psychological: No Symptoms Endocrine: No Symptoms Hematologic/Lymphatic: No Symptoms Immunological/Allergic: No Symptoms All Other Systems: Reviewed and Negative - Past Medical History Pertinent Past Medical History: Yes Neurological History: No Pertinent History ENT History: No Pertinent History Cardiac History: Hypertension Respiratory History: No Pertinent History Endocrine Medical History: No Pertinent History Musculoskeletal History: No Pertinent History GI Medical History: No Pertinent History, Other History: No Pertinent History, Other Psycho-Social History: No Pertinent History Female Reproductive Disorders: No Pertinent History Other Medical History: Gastritis 2010, anemia - Past Surgical History Past Surgical History: No - Social History Smoking Status: Never smoker Exposure to second hand smoke: No Drug Use: none Patient Lives Alone: No - Physical Exam General Appearance: no apparent distress, alert, anxiety Eye Exam: PERRL/EOMI, eyes nml inspection Ears, Nose, Throat Exam: normal ENT inspection, moist mucous membranes Neck Exam: normal inspection, non-tender, supple, full range of motion Respiratory Exam: airway intact, No chest tenderness, No respiratory distress Gastrointestinal/Abdomen Exam: No tenderness Rectal Exam: not done Back Exam: normal inspection, normal range of motion, No CVA tenderness, No vertebral tenderness Extremity Exam: normal inspection, normal range of motion, pelvis stable Neurologic Exam: alert, oriented x 3, cooperative, museum tour guide II-XII nml as tested, normal mood/affect, nml cerebellar function, nml station & gait, sensation nml Skin Exam: other (Skin of left breast does not show cellulitis. There is no palpable masses present. There is expressible serosanguineous fluid with palpation of the areola in the 1 o'clock position of the left breast.) Lymphatic Exam: No adenopathy SpO2 Interpretation: normal O2 Delivery: Room Air - Course Nursing assessment & vital signs reviewed: Yes Ordered Tests: Active Orders 24 hr Category Date Time Status CULTURE,WOUND Stat Lab 01/04/23 18:04 Ordered - Progress Progress: unchanged Progress Note: 01/04/23 18:09 This patient's medical issue is 1 of low complexity. The level of complexity in the work-up performed is based on review of the patient's past medical history, review of the patient's medication list, review the patient's drug allergy list, history of present illness and physical findings on examination. The work-up in this patient includes culture and sensitivity of the left nipple discharge fluid. We will also provide the patient with Keflex 500 mg orally x1 dose here. We will remotely send 1 weeks worth of 3 times a day Keflex 500 mg to her pharmacy. Counseled pt/family regarding: diagnosis, need for follow-up Medical Desision Making - Diagnostic Testing Diagnostic test were ordered, analyzed, and reviewed by me: No - Risk of complications The pt has a mod risk of morbidity or mortality based on: Need for prescription drug management - Departure Departure Disposition: Home Clinical Impression: Bloody discharge from left nipple Condition: Stable Critical Care Time: No Referrals: ANTOINETTE COOPER [Primary Care Provider] - Follow up/PCP as directed Additional Instructions: Keep the site clean daily with soap and water. Take your oral antibiotics as prescribed. Do not use any topical lotions ointments or creams to the site. Follow-up tomorrow, 01/05/2023, with your primary care provider, to make arrangements for further evaluation follow-up including any appropriate hormonal or radiographic studies Prescriptions: Cephalexin Mh 500 mg [Keflex 500 mg] 500 mg PO TID #21 cap
[2023-01-04] MEDS ORDERED: KEFLEX 500 MG PO ONE (18:03)
[2023-01-04 18:05] VITALS: BP 180/100; PULSE 99; RESP 18; TEMP 97.5; O2SAT 100
[2023-01-04] MEDS ORDERED: KEFLEX 500 MG ONE (18:08)
== END 2023-01-04 18:43 | disposition home or self-care (01) ==
LOC: ED 17:45
DX: N64.52 Nipple discharge (principal); I10 Essential (primary) hypertension; Z28.310 Unvaccinated for COVID-19
CPT/HCPCS: 87070; 87077; 87186; 99281; A9270-GY

== ENCOUNTER 2023-02-04 07:41 | Emergency (ER) | payer OTHER ==
[2023-02-04 07:57] VITALS: BP 173/107; PULSE 78; RESP 18; O2SAT 97
== END 2023-02-04 07:50 | disposition left against medical advice (07) ==
LOC: ED 07:41
DX: R07.9 Chest pain, unspecified (principal)
CPT/HCPCS: 93005; G0463; 99283